=== PATIENT | male | born 1990 | race Caucasian/White ===

== ENCOUNTER 2020-12-19 16:45 | Emergency (ER) | payer BC ==
[2020-12-19 17:44] LABS: HEMOGLOBIN 15.9 gm/dl (14.0-17.5); RED BLOOD COUNT 5.45 M/UL (4.20-5.50); WHITE BLOOD COUNT 8.5 K/UL (4.5-11.0)
[2020-12-19 18:03] LABS: BUN/CREATININE RATIO 15 (0-10)
== END 2020-12-19 20:14 | disposition home or self-care (01) ==
LOC: ER1 16:45
PROVIDERS: Internal Medicine
DX: E11.65 Type 2 diabetes mellitus with hyperglycemia (principal); Z87.442 Personal history of urinary calculi
CPT/HCPCS: 80053; 81001; 82962; 83036; 85025; 96374; 99283; J7120

== ENCOUNTER → 2022-03-12 | Outpatient (CLI) | payer BC | LOC: EXRD 10:06 | DX: M54.50 Low back pain, unspecified (principal) | CPT/HCPCS: 72070; 72100 ==